=== PATIENT | female | born 1970 | race African-American/Black ===

== ENCOUNTER 2020-04-29 13:20 | Emergency (ER) | payer MEDICARE, MEDICAID ==
[~2020-04-29] VITALS: Ht 167.6 cm; Wt 78.9 kg
[~2020-04-29 13:20] MED LIST: CEPHALEXIN500 MG ORAL
[2020-04-29 13:30] VITALS: BP 164/114
--- NOTE | 2020-04-29 13:46 | Emergency Room Report ---
History of Present Illness General Chief Complaint: Wound Recheck/Suture Removal Source: Patient Present Illness HPI 49-year-old female with no signal past medical history here requesting a wound check. Patient had a laceration repair at [facility] April 14, 2020 right forearm on the thenar side, did not take antibiotics right away, came in for wound check on April 23 and the wound appears to be cellulitic and patient had the sutures removed and Dermabond was placed patient was put on a new antibiotic. Patient has full range of motion today of the thumb. Denies any tingling numbness. Does not want to wear the splint has not follow-up primary doctor yet. Patient is neurovascularly intact. Has full strength in the upper extremities. Allergies: Coded Allergies: No Known Allergies (Unverified , 04/14/20) COVID-19 Screening Contact w/high risk pt: No Experienced COVID-19 symptoms?: No COVID-19 Testing performed SECRET SERVICE AGENT: No Patient History Past Medical History: see triage record Past Surgical History: none Pertinent Family History: none Last Menstrual Period: NA Now: No Immunizations: UTD Reviewed Nursing Documentation: PMH: Agreed; PSxH: Agreed Nursing Documentation-PMH Past Medical History: No History, Except For Hx Hypertension: Yes Review of Systems All Other Systems: negative except mentioned in HPI Physical Exam Vital Signs Date Time Temp Pulse Resp B/P (MAP) Pulse Ox O2 Delivery O2 Flow Rate FiO2 04/29/20 13:27 97.9 69 17 164/114 (131) 98 Room Air Sp02 EP Interpretation: reviewed, normal General Appearance: no apparent distress, alert, GCS 15, non-toxic Head: normocephalic, atraumatic Eyes: bilateral eye normal inspection, bilateral eye PERRL ENT: hearing grossly normal, normal pharynx, no angioedema, normal voice Neck: full range of motion, supple/symm/no masses Respiratory: normal inspection, chest non-tender, lungs clear, normal breath sounds, no rhonchi, no wheezing Cardiovascular #1: regular rate, rhythm, no edema Cardiovascular #2: 2+ radial (R), 2+ radial (L) Gastrointestinal: non tender Rectal: deferred Musculoskeletal: back normal, non-tender Neurologic: alert, motor strength/tone normal, oriented x3, sensory intact, responsive, speech normal Psychiatric: judgement/insight normal, memory normal, mood/affect normal, no suicidal/homicidal ideation Skin: other - Repaired lac right thenar side with no pus drainage and no cellulitic changes Lymphatic: no adenopathy Medical Decision Making PA Attestation Diagnosis and treatment plans were reviewed and discussed with my supervising physician Dr. Dobson Diagnostic Impression: Primary Impression: Encounter for re-check of laceration wound ER Course 49-year-old female with no signal past medical history here requesting a wound check. Patient had a laceration repair at [facility] April 14, 2020 right forearm on the thenar side, did not take antibiotics right away, came in for wound check on April 23 and the wound appears to be cellulitic and patient had the sutures removed and Dermabond was placed patient was put on a new antibiotic. Patient has full range of motion today of the thumb. Denies any tingling numbness. Does not want to wear the splint has not follow-up primary doctor yet. Patient is neurovascularly intact. Has full strength in the upper extremities. Ddx considered but are not limited to : Superficial laceration, deep laceration , tendon involvement with laceration, laceration with foreign body Vital signs: are WNL, pt. is afebrile H&PE are most consistent with: Recheck of laceration ORDERS:none ED INTERVENTIONS: Wound dressing and Prabhu bandage applied DISCHARGE: At this time pt. is stable for d/c to home. Will provide printed patient care instructions, and any necessary prescriptions. Care plan and follow up instructions have been discussed with the patient prior to discharge. Patient to follow-up with a hand specialist, take medication as directed and finish antibiotics, if worsening symptoms return to the emergency room. Last Vital Signs Date Time Temp Pulse Resp B/P (MAP) Pulse Ox O2 Delivery O2 Flow Rate FiO2 04/29/20 13:27 97.9 69 17 164/114 (131) 98 Room Air Disposition: HOME, SELF-CARE Condition: Stable Patient Instructions: Wound Check Additional Instructions: Follow-up with hand specialist if The pulling sensation continues, avoid strenuous physical activity with the affected side, if worsening symptoms return to the emergency room. Rc Greco Apr 29, 2020 13:46
[2020-04-29 14:14] VITALS: BP 154/106
== END 2020-04-29 14:16 | disposition home or self-care (01) ==
LOC: EMR 13:42
DX: Z09 Encounter for follow-up examination after completed treatment for conditions other than malignant neoplasm (principal); S61.011D Laceration without foreign body of right thumb without damage to nail, subsequent encounter; I10 Essential (primary) hypertension; X58.XXXD Exposure to other specified factors, subsequent encounter
CPT/HCPCS: 99282

== ENCOUNTER 2020-05-12 13:18 | Emergency (ER) | payer MEDICARE, MEDICAID ==
[~2020-05-12] VITALS: Ht 167.6 cm; Wt 77.6 kg
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
[2020-05-12 13:49] VITALS: BP 178/111
--- NOTE | 2020-05-12 14:24 | NUR ---
ED Nurse Note: Pt en route to radiology
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
--- NOTE | 2020-05-12 15:30 | NUR ---
ED Nurse Note: ED PA aware of BP of 181/110.
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
[2020-05-12] MEDS ORDERED: IBUPROFEN600 M1 ORAL (15:38)
[2020-05-12] MEDS ORDERED: AUGMENTIN 875-1 EAC1 ORAL (15:38)
[2020-05-12] MEDS ORDERED: MUPIROCIN22 GM TOPIC (15:38)
[2020-05-12] MEDS ORDERED: ROBAXIN-500MG ORAL (15:38)
[2020-05-12 15:43] VITALS: BP 174/110
--- NOTE | 2020-05-12 15:43 | NUR ---
ED Nurse Note: Pt cleared by health care Provider for discharge. DC instructions/prescription were given and explained to pt and verbalized understanding of teachings. All medical deviecs such as ID band removed. Pt is AAO x4, ambulatory and left with all personal belongings.
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
== END 2020-05-12 15:43 | disposition home or self-care (01) ==
LOC: EMR 14:26
DX: L08.9 Local infection of the skin and subcutaneous tissue, unspecified (principal); S10.90XA Unspecified superficial injury of unspecified part of neck, initial encounter; T14.8XXA Other injury of unspecified body region, initial encounter; I10 Essential (primary) hypertension; Y04.2XXA Assault by strike against or bumped into by another person, initial encounter; Y93.9 Activity, unspecified; Y92.9 Unspecified place or not applicable
CPT/HCPCS: 70490; 72125; 99284